=== PATIENT | female | born 1950 | race Caucasian/White ===

== ENCOUNTER → 2018-05-30 | Outpatient (CLI) | payer MEDICARE ==
--- NOTE | 2018-05-30 16:15 | Diagnostic Imaging Report ---
INDICATION: Fall with right-sided rib pain. TIME OF EXAM: 4:19 p.m. COMPARISON: Correlation is made with prior study from 01/19/2012. FINDINGS: The heart size is stable. The lungs are clear. No effusion or pneumothorax is identified. Multilevel kyphoplasty changes in the thoracic and lumbar spine are seen. IMPRESSION: No acute cardiopulmonary process is detected. Dictated by: Dictated on workstation # [id number]
--- NOTE | 2018-05-30 16:18 | Diagnostic Imaging Report ---
INDICATION: Fall with right rib pain. TIME OF EXAM: 04:21 p.m. FINDINGS: Generalized demineralization is noted to the ribs, limiting evaluation. No definite displaced rib fracture is seen. No parenchymal contusion, effusion, or pneumothorax is identified. IMPRESSION: No displaced rib fracture is detected. Dictated by: Dictated on workstation # [id number]
== END ==
LOC: RAD 15:45
PROVIDERS: ATTEND Nurse Practitioner Family
DX: R07.81 Pleurodynia (principal); R05 Cough
CPT/HCPCS: 71046; 71100

== ENCOUNTER → 2018-06-06 | Outpatient (CLI) | payer MEDICARE ==
--- NOTE | 2018-06-06 14:01 | Diagnostic Imaging Report ---
PROCEDURE: CT head without contrast. TECHNIQUE: Multiple contiguous axial images were obtained through the brain without the use of intravenous contrast. INDICATION: Multiple falls with memory loss and headache. COMPARISON: No prior studies are available for comparison. FINDINGS: The ventricles and sulci are within normal limits. No sulcal effacement, midline shift, or hemorrhage is detected. The cisterns are patent. The visualized paranasal sinuses are clear. IMPRESSION: No acute intracranial process is detected. Dictated by: Dictated on workstation # [id number]
== END ==
LOC: RAD 13:03
PROVIDERS: ATTEND Nurse Practitioner Family
DX: R51 Headache (principal); R41.3 Other amnesia; W19.XXXA Unspecified fall, initial encounter
CPT/HCPCS: 70450

== ENCOUNTER → 2019-09-04 | Outpatient (CLI) | payer MEDICARE ==
--- NOTE | 2019-09-04 14:00 | Diagnostic Imaging Report ---
INDICATION: Screening for osteoporosis. COMPARISON: None. FINDINGS: The bone mineral density of the hips and spine was measured. There are no prior studies available for comparison. The T-score for the spine is -1.7. This value is within normal limits. The total T-score for the left hip is -3.2 and for the right hip -2.5. The T-score for the left femoral neck is -2.9 and for the right femoral neck -2.8. All of these values indicate osteoporosis. AP Spine L1-L4: [BMD (g/cm2): 1.110] [T-Score: -0.7] [Z-Score: 1.1] [BMD Previous: NA] [BMD % Change: NA] LT Hip Neck: [BMD (g/cm2): 0.633] [T-Score: -2.9] [Z-Score: -1.0] LT Hip Total: [BMD (g/cm2):0.606] [T-Score:-3.2] [Z-Score: -1.5] [BMD Previous: NA] [BMD % Change: NA] RT Hip Neck: [BMD (g/cm2):0.654] [T-Score:-2.8] [Z-Score:-0.9] RT Hip Total: [BMD (g/cm2):0.692] [T-score:-2.5] [Z-Score:-0.8] [BMD Previous:NA] [BMD % Change:NA] *Indicates significant change from prior examination based on 95% confidence level. World Health Organization criteria for BMD interpretation classify patients as Normal (T-score at or above -1.0), Osteopenic (T-score between -1.0 and -2.5) or Osteoporotic (T-score at or below -2.5). LIMITATIONS AND MODIFICATION: None. FRACTURE RISK (FRAX SCORE): The ten year probability of (%): Major Osteoporotic Fracture: [28.6] Hip Fracture: [9.6] IMPRESSION: 1. The bone mineral density of the spine is within normal limits. 2. However, there is osteoporosis of the hips and femoral necks. 3. See below National Osteoporosis Foundation guidelines on when to potentially initiate pharmacologic therapy. Based on the National Osteoporosis Foundation Guidelines, pharmacologic treatment should be initiated in any of the following, unless clinical conditions suggest otherwise: * Any patient with prior fragility fracture of the hip or vertebrae. A spine fracture indicates 5X risk for subsequent spine fracture and 2X risk for subsequent hip fracture. * Osteoporosis (T-score <-2.5). * Postmenopausal women and men age 50 and older with low bone mass/osteopenia (T-score between -1.0 and -2.5) by DXA and 10-year major osteoporotic fracture greater than 20% or a 10-year probability of hip fracture greater than 3%. These fracture risks are supplied above in the FRAX score, if applicable. * Clinician judgment and/or patient preferences may indicate treatment for people with 10-year fracture probabilities above or below these levels. Dictated by: Dictated on workstation # [id number]
== END ==
LOC: RAD 12:43
PROVIDERS: ATTEND Family Medicine
DX: Z13.820 Encounter for screening for osteoporosis (principal); M81.0 Age-related osteoporosis without current pathological fracture
CPT/HCPCS: 77080

== ENCOUNTER → 2019-12-04 | Outpatient (CLI) | payer MEDICARE ==
--- NOTE | 2019-12-04 16:18 | Diagnostic Imaging Report ---
PROCEDURE: US Thyroid. TECHNIQUE: Multiple real-time grayscale images were obtained of the thyroid in various projections. INDICATION: Hypothyroidism. COMPARISON: No prior studies are available for comparison. FINDINGS: Right lobe of the thyroid measures 2.8 x 1.0 x 0.7 cm and the left lobe measures 2.9 x 0.7 x 1.0 cm. Isthmus is 2 mm in thickness. Both lobes are somewhat heterogeneous. No discrete thyroid mass is detected. IMPRESSION: Small, heterogeneous thyroid. No discrete thyroid mass is detected. Dictated by: Dictated on workstation # [id number]
== END ==
LOC: RAD 15:16
PROVIDERS: ATTEND Nurse Practitioner Family
DX: E03.9 Hypothyroidism, unspecified (principal)
CPT/HCPCS: 76536